=== PATIENT | female | born 1980 | race African-American/Black ===

== ENCOUNTER 2023-01-16 14:49 | Emergency (ER) | payer OTHER ==
[2023-01-16 16:42] LABS: Protime INR 1.13
--- NOTE | 2023-01-16 16:47 | RAD REPORT ---
EXAM DESCRIPTION: US - Transvaginal Study Probe - 01/16/2023 3:39 pm CLINICAL HISTORY: VAGINAL BLEEDING COMPARISON: No comparisons TECHNIQUE: Sonographic grayscale and color flow images of the pelvis were obtained. FINDINGS: The uterus is markedly enlarged, with bulky heterogeneous hypoechoic fibroids throughout. Appearance of the uterus is poorly defined through transvaginal approach, and measures up to 13.6 x 1 3.3 x 9.1 cm through transabdominal approach. Numerous fibroids throughout the myometrium involving u pper to lower segments, the largest measuring 5.7 x 7.3 x 4.5 cm, possibly at the lower segment. A se cond large fibroid at the mid segment to fundus measures 5.1 x 5.0 x 4.7 cm. The endometrial stripe could not be delineated. Both ovaries could not be visualized given the bulky appearance of the uterus and over shadowing masoud l. No significant pelvic ascites. IMPRESSION: Bulky appearance of the uterus suggesting a numerous fibroids, largest as measured above . Endometrial stripe could not be discretely delineated. Ovaries were not well visualized.
[2023-01-16 16:49] LABS: Potassium 3.9 mEq/L (3.5-5.1)
[2023-01-16 17:20] LABS: Absolute Lymphocytes (CBC) 1.3 K/uL (0.7-4.9); Hematocrit 15.5 % (36.0-45.0); Lymphocytes % 30.7 % (15.3-44.8)
[2023-01-16 17:21] LABS: Platelets 62 thou/uL (152-406)
[2023-01-16 17:22] LABS: MPV 8.2 fL (7.6-11.3)
--- NOTE | 2023-01-16 17:55 | EDPHYS ---
Physician Documentation [facility] Name: Lou Hsu Age: 42 yrs Sex: Female : 1980 Arrival Date: 01/16/2023 Time: 14:49 Bed 12 Private MD: ED Physician Frank Atwood HPI: 01/16 17:50 This 42 yrs old Black Female presents to ER via Wheelchair with complaints of HEAVY rn BLEEDING ON CYCLE. 17:50 The patient presents with vaginal bleeding that is moderate. rn 17:52 Onset: The symptoms/episode began/occurred at an unknown time. Modifying factors: The rn symptoms are alleviated by nothing, the symptoms are aggravated by nothing. Severity of symptoms: At their worst the symptoms were moderate, in the emergency department the symptoms are unchanged. The patient has experienced similar episodes in the past. The patient has not recently seen a physician. Patient reports Oriental orthodox, has experienced multiple heavy periods in the past and diagnosed with fibroids but gynecology will not take her uterus out because of her mormonism believes. Has seen to coloring checker in the past that refused to take it. Returns today for heavier bleeding, going through a pad every 30 minutes for the last few days with symptomatic anemia. Reports dizziness and lightheadedness with syncopal episode as well as shortness of breath.. Historical: - Allergies: 15:55 No Known Allergies; nj1 - PMHx: 15:55 Anemia; nj1 - PSHx: 15:55 Gastric sleeve (September 2020); section; section; section; nj1 Cholecystectomy; - Immunization history:: Client reports receiving the 2nd dose of the Covid vaccine. - Social history:: Smoking status: Patient reports the use of cigarette tobacco products, smokes one-half pack cigarettes per day. - Family history:: not pertinent. - Hospitalizations: : No recent hospitalization is reported. ROS: 17:52 Constitutional: Negative for fever, chills, and weight loss, Cardiovascular: Negative rn for chest pain, palpitations, and edema, Respiratory: Negative for shortness of breath, cough, wheezing, and pleuritic chest pain, Abdomen/GI: Negative for abdominal pain, nausea, vomiting, diarrhea, and constipation, : Positive for vaginal bleeding MS/Extremity: Negative for injury and deformity, Neuro: Negative for headache, numbness, tingling, and seizure, Exam: 17:52 Constitutional: This is a well developed, well nourished patient who is awake, alert, rn and in no acute distress. Cardiovascular: Tachycardic, regular. No pulse deficits. Respiratory: No increased work of breathing, no retractions or nasal flaring. Abdomen/GI: Soft, non-tender Neuro: Awake and alert, GCS 15 Vital Signs: 15:50 BP 144 / 75; Pulse 86; Resp 17; Temp 98.2(TE); Pulse Ox 100% ; Weight 99.79 kg; Height nj1 5 ft. 9 in. ; 18:11 BP 160 / 89; Pulse 84; Resp 16; Pulse Ox 100% on R/A; mb9 18:43 BP 148 / 67; Pulse 77; Resp 18; Pulse Ox 100% on R/A; mb9 20:54 BP 146 / 76; Pulse 78; Resp 16; Pulse Ox 99% on R/A; hb 15:50 Body Mass Index 32.49 (99.79 kg, 175.26 cm) nj1 MDM: 14:58 Patient medically screened. rn 17:52 Differential diagnosis: dysfunctional uterine bleeding, dysmenorrhea, malignancy, rn uterine fibroids, Anemia, symptomatic anemia. Data reviewed: vital signs, nurses notes, lab test result(s), radiologic studies, ultrasound, and as a result, I will admit patient. Consideration of Admission/Observation Patient was admitted/placed on observation. Escalation of care including admission/observation considered. Counseling: I had a detailed discussion with the patient and/or guardian regarding the historical points, exam findings, and any diagnostic results supporting the discharge/admit diagnosis, lab results, radiology results, the need to transfer to another facility, for higher level of care, [facility] does not immediately have the required specialist. 17:52 ED course: I personally spent 35 minutes engaged in work directly related to the rn individual patient's care. This does not include any time spent performing procedures. The patient has been deemed critically ill because of anemia down to 4.6, symptomatic anemia with dizziness and lightheadedness, Oriental orthodox and unable to resuscitate with blood, and emergent transfer to another facility for stabilization and care.. 18:08 ED course: Notified by pharmacy that we do not carry p.o. Provera anymore.. rn 01/16 14:59 Order name: CBC with Diff rn 01/16 14:59 Order name: Basic Metabolic Panel; Complete Time: 17:24 rn 01/16 14:59 Order name: Protime (+inr); Complete Time: 16:47 rn 01/16 14:59 Order name: Ptt, Activated; Complete Time: 16:47 rn 01/16 14:59 Order name: Test, Urine rn 01/16 14:59 Order name: Urinalysis w/ reflexes rn 01/16 16:13 Order name: Ferritin rn 01/16 16:13 Order name: Iron Level rn 01/16 16:13 Order name: TRANSFERRIN SAT/IRON BINDING rn 01/16 19:06 Order name: CBC Smear Scan EDMS 01/16 15:10 Order name: Transvaginal Study Probe; Complete Time: 16:48 EDMS 01/16 14:59 Order name: IV Start; Complete Time: 16:31 rn Administered Medications: 18:39 Not Given (Physician Discretion): Provera 40 mg PO once mb9 18:43 Drug: tranexamic acid 1000 mg IV at calculated rate once; administer at a rate not to mb9 exceed 100 mg per min Route: IV; Rate: calculated rate; Site: left upper arm; Disposition Summary: 01/16/23 17:55 Transfer Ordered Notes: Transfer Location: [facility] rn Reason: Higher level of care rn Condition: Stable rn Problem: an ongoing problem rn Symptoms: are unchanged rn Accepting Physician: (01/16/23 21:27) hb Diagnosis - Abnormal uterine and vaginal bleeding, unspecified rn - Anemia, unspecified rn - Leiomyoma of uterus, unspecified rn Forms: - Medication Reconciliation Form rn - SBAR form churn driller time excluding procedures: 17:52 Critical care time: Bedside Care: 30 minutes, Consultation: 5 minutes. Total time: 35 rn minutes Signatures: Dispatcher [employer] EDDE Frank Atwood MD MD rn Baxter, Heather RN RN Iwona Simpson, RN RN mb9 Yanni Stearns rv1 Layla Mccray RN RN nj1 Corrections: (The following items were deleted from the chart) 15:10 15:00 Pelvis Complete+US.RAD.BRZ ordered. EDDE EDMS 17:56 17:55 Dr. rn rn 20:03 17:56 Dr. uriarte rv1 21:27 20:03 Dr. canas1 hb
--- NOTE | 2023-01-16 17:55 | ER ---
Nurse's Notes [facility] Name: Lou Hsu Age: 42 yrs Sex: Female : 1980 Arrival Date: 01/16/2023 Time: 14:49 Bed 12 Private MD: Diagnosis: Abnormal uterine and vaginal bleeding, unspecified;Anemia, unspecified;Leiomyoma of uterus, unspecified Presentation: 01/16 15:20 Note Not in WR, in imaging. [facility] 15:50 Chief complaint: Patient states: Believes iron is really low, states she has been nj feeling fatigued and had palpitations about a week before her period started on Sunday. Hx of heavy bleeding. Had an iron transfusion last about 5 years ago. Has never had a blood transfusion due to jehovah's witness beliefs. Coronavirus screen: Vaccine status: Patient reports receiving the 2nd dose of the covid vaccine. Ebola Screen: Patient denies travel to an Ebola-affected area in the 21 days before illness onset. Initial Sepsis Screen: Does the patient meet any 2 criteria? No. Patient's initial sepsis screen is negative. Does the patient have a suspected source of infection? No. Patient's initial sepsis screen is negative. Risk Assessment: Do you want to hurt yourself or someone else? Patient reports no desire to harm self or others. Onset of symptoms was January 2023. 15:50 Method Of Arrival: Wheelchair nj1 15:50 Acuity: LISBET 3 nj1 17:46 Acuity: LISBET 2 jl7 Historical: - Allergies: 15:55 No Known Allergies; nj1 - PMHx: 15:55 Anemia; nj1 - PSHx: 15:55 Gastric sleeve (September 2020); section; section; section; nj1 Cholecystectomy; - Immunization history:: Client reports receiving the 2nd dose of the Covid vaccine. - Social history:: Smoking status: Patient reports the use of cigarette tobacco products, smokes one-half pack cigarettes per day. - Family history:: not pertinent. - Hospitalizations: : No recent hospitalization is reported. Screenin:15 [facility] ED Fall Risk Assessment (Adult) History of falling in the last 3 months, mb9 including since admission No falls in past 3 months (0 pts) Confusion or Disorientation No (0 pts) Intoxicated or Sedated No (0 pts) Impaired Gait No (0 pts) Mobility Assist Device Used No (0 pt) Altered Elimination No (0 pt) Score/Fall Risk Level 0 - 2 = Low Risk Oriented to surroundings, Maintained a safe environment, Educated pt \T\ family on fall prevention, incl call for assistance when getting out of bed. Abuse screen: Denies threats or abuse. Nutritional screening: No deficits noted. Tuberculosis screening: No symptoms or risk factors identified. Assessment: 16:31 General: Appears uncomfortable, Behavior is calm, cooperative. Pain: Denies pain. mb9 Neuro: Garcia Agitation-Sedation Scale (RASS): 0 - Alert and Calm Level of Consciousness is awake, alert, obeys commands, Oriented to person, place, time, situation, Appropriate for age. Cardiovascular: Patient's skin is warm and dry. Respiratory: Airway is patent Respiratory effort is even, unlabored, Respiratory pattern is regular, symmetrical, Breath sounds are clear bilaterally. GI: Abdomen is round non-distended, Bowel sounds present X 4 quads. Abd is soft and non tender X 4 quads. : Reports vaginal bleeding that is bright red, heavy flow. EENT: No signs and/or symptoms were reported regarding the EENT system. Derm: Skin is pink, warm \T\ dry. Musculoskeletal: Range of motion: intact in all extremities. 16:31 Reassessment: pt states she will not receive transfusion due to latter day beliefs. mb9 17:35 Reassessment: No changes from previously documented assessment. Patient and/or family mb9 updated on plan of care and expected duration. Pain level reassessed. Patient is alert, oriented x 3, equal unlabored respirations, skin warm/dry/pink. 17:41 Reassessment: tranexamic acid and provera order faxed to pharmacy. mb9 17:45 Reassessment: 22 g to left AC infiltrated. IV discontiuned. mb9 18:35 Reassessment: No changes from previously documented assessment. Patient and/or family mb9 updated on plan of care and expected duration. Pain level reassessed. Patient is alert, oriented x 3, equal unlabored respirations, skin warm/dry/pink. 20:17 Reassessment: Report called to [facility]. hb 20:30 Reassessment: Patient appears in no apparent distress at this time. Patient and/or hb family updated on plan of care and expected duration. Pain level reassessed. Patient is alert, oriented x 3, equal unlabored respirations, skin warm/dry/pink. Vital Signs: 15:50 BP 144 / 75; Pulse 86; Resp 17; Temp 98.2(TE); Pulse Ox 100% ; Weight 99.79 kg; Height nj1 5 ft. 9 in. ; 18:11 BP 160 / 89; Pulse 84; Resp 16; Pulse Ox 100% on R/A; mb9 18:43 BP 148 / 67; Pulse 77; Resp 18; Pulse Ox 100% on R/A; mb9 20:54 BP 146 / 76; Pulse 78; Resp 16; Pulse Ox 99% on R/A; hb 15:50 Body Mass Index 32.49 (99.79 kg, 175.26 cm) [facility] ED Course: 14:54 Patient arrived in ED. kj1 14:58 Frank Atwood MD is Attending Physician. rn 15:41 Transvaginal Study Probe In Process Unspecified. EDMS 15:55 Triage completed. nj1 15:56 Arm band placed on right wrist. nj1 16:11 Iwona Ayala, RN is Primary Nurse. mb9 16:15 Placed in gown. Bed in low position. Call light in reach. Side rails up X 1. Client mb9 placed on continuous cardiac and pulse oximetry monitoring. NIBP monitoring applied. 16:31 Iron Level Sent. mb9 16:31 Ferritin Sent. mb9 16:31 TRANSFERRIN SAT/IRON BINDING Sent. mb9 16:31 Protime (+inr) Sent. mb9 16:31 Ptt, Activated Sent. mb9 16:31 Basic Metabolic Panel Sent. mb9 16:31 CBC with Diff Sent. mb9 16:32 No provider procedures requiring assistance completed. Inserted saline lock: 22 gauge mb9 in left antecubital area, using aseptic technique. Blood collected. 17:43 initiated transfer to [facility]. bd 18:40 Inserted saline lock: 20 gauge in left upper arm, using aseptic technique. ,using [facility] aseptic technique. Ultrasound guided. Catheter tip well visualized within vasculature during placement. 21:26 Patient transferred, IV remains in place. hb Administered Medications: 18:39 Not Given (Physician Discretion): Provera 40 mg PO once mb9 18:43 Drug: tranexamic acid 1000 mg IV at calculated rate once; administer at a rate not to mb9 exceed 100 mg per min Route: IV; Rate: calculated rate; Site: left upper arm; Medication: 16:15 VIS not applicable for this client. mb9 Outcome: 17:55 ER care complete, transfer ordered by . rn 21:26 Transferred by ground EMS to [facility], 21:26 Condition: stable 21:26 Instructed on the need for transfer, Demonstrated understanding of instructions, 21:27 Patient left the ED. hb Signatures: Dispatcher [employer] EDMS Mary Bautista Roman, MD MD rn Baxter, Heather, RN RN Tucker Stone RN RN jl7 Jacqueline Huggins Mary Beth RN RN mb9 Layla Mccray RN RN nj1 Corrections: (The following items were deleted from the chart) 18:35 17:41 Reassessment: tranexamic acid order faxed to pharmacy mb9 mb9
[2023-01-16 18:07] LABS: Ferritin 2.7 ng/mL (8-388)
[2023-01-16] MEDS ORDERED: TRANEXAMIC ACID 1,000 MG/10 ML VIAL IV ONE (18:07)
[2023-01-16] MEDS ORDERED: NA CHLORIDE 0.9% 50 ML ONE (18:07)
[2023-01-16 20:13] LABS: Anisocytosis 3+; Blood Morphology Comment NOTED (NOT SEEN); Hypochromasia 2+; Platelet Estimate DECR; Poikilocytosis 1+; Polychromasia 1+; White Blood Cell Scan OK (OK)
[2023-01-16 20:46] LABS: Specific Gravity 1.013 (1.005-1.030)
[2023-01-16 20:53] LABS: Specific Gravity 1.013 (1.005-1.030); Urine Bacteria None Seen /HPF (<20); Urine Bilirubin NEGATIVE (Negative); Urine Blood 3+ (Negative); Urine Clarity Clear (Clear); Urine Color Light-Yellow (Yellow); Urine Glucose NEGATIVE (Negative); Urine Mucus Slight /HPF (None Seen); Urine Protein NEGATIVE (Negative); Urine RBC >50 /HPF (None Seen); Urine Urobilinogen Normal (Normal)
[2023-01-16 21:42] VITALS: TEMP 98.2
[2023-01-16 21:45] VITALS: BP 146/76; O2SAT 99
== END 2023-01-16 21:27 | disposition short-term general hospital (02) ==
LOC: ER 14:49
DX: D64.9 Anemia, unspecified (principal); D25.9 Leiomyoma of uterus, unspecified; F17.210 Nicotine dependence, cigarettes, uncomplicated
CPT/HCPCS: 36415; 76830; 80048; 81001; 81025; 82728; 83540; 84466; 85025; 85610; 85730; 96374; 99285